=== PATIENT | male | born 1940 | race Caucasian/White ===

== ENCOUNTER 2024-08-07 10:04 | Inpatient (IN) | payer MEDICARE, MEDICAID ==
[~2024-08-07] VITALS: Ht 175.3 cm; Wt 72.6 kg
[2024-08-07 10:54] LABS: INR 1.2; PROTHROMBIN TIME 13.7 sec (9.6-11.0)
[2024-08-07 10:55] LABS: CHLORIDE 109 mEq/L (98-107); POTASSIUM 3.9 mEq/L (3.5-5.1); SODIUM 142 mEq/L (136-145)
[2024-08-07 10:56] LABS: CALCIUM 8.4 mg/dL (8.7-10.4); CARBON DIOXIDE 26 mEq/L (21-32)
[2024-08-07 11:01] LABS: CREATININE 0.7 mg/dL (0.6-1.3); GLUCOSE 99 mg/dL (70-105); UREA NITROGEN BLOOD 7 mg/dL (9-23)
[2024-08-07 11:07] LABS: HEMOGLOBIN. 10.3 g/dL (14.0-18.0); MEAN CORPUSCULAR HGB CONC 32.1 g/dL (31.0-37.0); MEAN CORPUSCULAR VOLUME 96.5 fL (80.0-94.0); MEAN PLATELET VOLUME 8.3 fl (7.4-10.4); PLATELET 205 x1000/uL (130-400); RED BLOOD CELL COUNT 3.32 mill/uL (4.7-6.1); RED CELL DISTRIBUTION WIDTH 18.7 % (11.6-14.6); WHITE BLOOD COUNT 6.1 x1000/uL (4.5-11.0)
[2024-08-07] MEDS ORDERED: CEFEPIME 1GM IN DEXT 5% 50ML IV ONE (11:30)
[2024-08-07 11:31] LABS: DIFFERENTIAL COMMENT 1
[2024-08-07] MEDS ORDERED: VANCOMYCIN 1.5GM/250ML 250 ML IV NR (12:00)
[2024-08-07] MEDS: CEFEPIME 1GM PREMIX 50ML IV NR (15:38)
[2024-08-07 16:19] LABS: ANISOCYTOSIS 1+; PLATELET ESTIMATE NORMAL
[2024-08-07 20:00] VITALS: BP 134/62; PULSE 75; RESP 24; TEMP 36.2
[2024-08-07] MEDS: AZITHROMYCIN 500MG/250ML 250 ML IV SCH (22:00)
[2024-08-08] VITALS (7 sets, daily range): BP systolic 107–144; BP diastolic 59–122; PULSE 72–96; RESP 18–24; TEMP 36.3–36.8; O2SAT 98–99
[2024-08-08] MEDS: CEFTRIAXONE 1GM/50ML 50 ML IV SCH (00:19)
[2024-08-08] MEDS ORDERED: HYDROCODONE/ACETAMINOPHEN 10/325MG TABLET PO PRN (01:45)
[2024-08-08] MEDS ORDERED: ONDANSETRON HCL 4MG/2ML INJ IV PRN (01:45)
[2024-08-08] MEDS: AZITHROMYCIN 500 MG TABLET PO SCH (21:22)
[2024-08-09] VITALS: BP 128/68; RESP 19; TEMP 36.9; O2SAT 94
[2024-08-09 04:00] VITALS: BP 126/86; PULSE 75; RESP 19; TEMP 36.8; O2SAT 92
[2024-08-09 08:00] VITALS: BP 146/71; PULSE 89; RESP 20; TEMP 36.7; O2SAT 99
[2024-08-09 16:00] VITALS: BP 105/63; PULSE 84; RESP 20; TEMP 36.1; O2SAT 100
[2024-08-09 20:00] VITALS: BP 124/71; PULSE 91; RESP 19; TEMP 37.3; O2SAT 96
[2024-08-10] VITALS (9 sets, daily range): BP systolic 117–134; BP diastolic 61–71; PULSE 71–89; RESP 18–20; TEMP 36.7–36.9; O2SAT 93–100
[2024-08-10] MEDS: IPRATROPIUM/ALBUTEROL 0.5-3(2.5)MG/3ML NEB HHN PRN (09:29)
[2024-08-10] MEDS: IPRATROPIUM/ALBUTEROL 0.5-3(2.5)MG/3ML NEB HHN SCH (14:59)
== END 2024-08-10 22:25 | DRG 193 ==
LOC: ER 10:04 → 6WST 13:41 → EDBEDREQTM 13:44 → EDBEDREQ 13:44 → EDBEDREQTM 13:45
PROVIDERS: ADMIT Internal Medicine; ATTEND Internal Medicine
DX: J18.9 Pneumonia, unspecified organism (principal); J96.00 Acute respiratory failure, unspecified whether with hypoxia or hypercapnia; I10 Essential (primary) hypertension; Z20.822 Contact with and (suspected) exposure to COVID-19; E78.00 Pure hypercholesterolemia, unspecified; E11.9 Type 2 diabetes mellitus without complications; D64.9 Anemia, unspecified; F03.90 Unspecified dementia, unspecified severity, without behavioral disturbance, psychotic disturbance, mood disturbance, and anxiety; Y95 Nosocomial condition; Z79.899 Other long term (current) drug therapy
CPT/HCPCS: 36415; 71045; 80048; 85025; 87426; 87804; 94070; 94640; 99285; A4606; A4663; A6261; J0456; J0692; J0696; J3370